=== PATIENT | female | born 1985 | race Caucasian/White ===

== ENCOUNTER → 2024-08-02 15:26 | Outpatient (BNVA) | payer SELFPAY | PROVIDERS: PCP Family Medicine; Visit Provider Family Medicine | DX: Z13.6 Encounter for screening for cardiovascular disorders (principal); D50.9 Iron deficiency anemia, unspecified; Z30.09 Encounter for other general counseling and advice on contraception | CPT/HCPCS: 80053; 80061; 82728; 83036; 83550; 84443; 85025 ==

== ENCOUNTER 2024-09-08 14:32 | Outpatient (CLI) | payer SELFPAY ==
--- NOTE | 2024-09-08 14:30 | CT_ITS ---
WS: [id number] CT NECK WITH CONTRAST HISTORY: Lymphadenopathy TECHNIQUE: Contiguous 2 mm axial images are performed through the neck with intravenous contrast. Sagittal and coronal reformats are also submitted. All CT scans at [facility] use at least one of these dose optimization techniques: automated exposure control; mA and/or kV adjustment per patient size (includes targeted exams where dose is matched to clinical indication); or iterative reconstruction. CONTRAST: CONTRAST: Omnipaque 350; 100 mL IV. DLP: 253.02 mGy.cm COMPARISON: None available. Nasopharynx, oropharynx, hypopharynx and larynx are unremarkable. No soft tissue masses or abnormal enhancement. Torus tubarius and fossa of Rosenmuller and parapharyngeal fat are normal. Numerous but small cervical chain lymph nodes. The largest lymph node at level 2A measures 12 mm in diameter, RIGHT. There are additional numerous lymph nodes but smaller in caliber at multiple levels in the cervical chains. Small posterior occipital lymph nodes. There are a few small lymph nodes superficial to the parotid glands. Thyroid gland and salivary glands are normally enhancing with no masses. No osseous abnormalities. Visualized portions of the skull base demonstrate no abnormalities. Orbits and globes are within normal limits. No soft tissue masses. Visualized paranasal sinuses and mastoid air cells are normal. Lung apices are clear. CT/CT neck w con* [id number] IMPRESSION: 1. Numerous bilateral cervical chain lymph nodes. The largest lymph node is 11 mm on the RIGHT at level 2A. Lymph nodes are most typical for reactive adenopa thy. 2. No neck mass identified. No laryngeal mass. No compromise of the airway.
[2024-09-08] MEDS: iohexol 350 mg/mL 500 mL Btl (per mL) IV (14:53)
== END 2024-09-08 14:33 | disposition home or self-care (01) ==
PROVIDERS: PCP Family Medicine; Visit Provider Family Medicine
DX: R59.0 Localized enlarged lymph nodes (principal)
CPT/HCPCS: 70491